=== PATIENT | male | born 1960 | race Caucasian/White ===

== ENCOUNTER 2017-12-01 09:39 | Emergency (ER) | payer BC ==
--- NOTE | 2017-12-01 09:49 | PDOC ---
History of Present Illness - General Chief Complaint: Injury Stated Complaint: INJURY FINGER Time Seen by Provider: 12/01/17 09:42 History Source: Patient (Patient walked in c/o injury to the left 5th finger injury) Exam Limitations: No Limitations - History of Present Illness Timing/Duration: 24 hours Severity: mild, moderate Modifying Factors: improves with: cold therapy, rest Associated Symptoms: reports: denies symptoms Past History - Travel Traveled outside of the country in the last 30 days: No Close contact w/someone who was outside of country & ill: No - Past Medical History Allergies/Adverse Reactions: Allergies Allergy/AdvReac Type Severity Reaction Status Date / Time No Known Allergies Allergy Verified 12/01/17 09:48 Home Medications: Ambulatory Orders Unobtainable 12/01/17 Review of Systems - Review of Systems Able to Perform ROS?: Yes Is the patient limited [place] proficient: Yes Constitutional: No: Symptoms Reported, See HPI, Chills, Diaphoresis, Fever, Loss of Appetite, Malaise, Night Sweats, Weakness, Weight Stable, Unintentional Wgt. Loss, Unexplained wgt Loss, Other HEENTM: No: Symptoms Reported, See HPI, Eye Pain, Blurred Vision, Tearing, Recent change in vision, Double Vision, Cataracts, Ear Pain, Ocular Prothesis, Ear Discharge, Nose Pain, Nose Congestion, Tinnitus, Nose Bleeding, Hearing Loss , Throat Pain, Throat Swelling, Mouth Pain, Dental Problems, Difficulty Swallowing, Mouth Swelling, Other Respiratory: No: Symptoms reported, See HPI, Cough, Orthopnea, Shortness of Breath, SOB with Exertion, SOB at Rest, Stridor, Wheezing, Productive cough, Hemoptysis, Other Musculoskeletal: Yes: Symptoms Reported, See HPI All Other Systems: Reviewed and Negative *Physical Exam - Physical Exam General Appearance: Yes: Nourished, Appropriately Dressed, Moderate Distress HEENT: positive: ESTEFANI Neck: positive: Supple Extremity: positive: Normal Capillary Refill, Swelling, Other (tenderness and slight angulation of the left 5th finger) Neurologic: positive: Fully Oriented, Alert, Normal Mood/Affect Procedures - Splinting Splint Location: Left: Finger Pre-Proc Neuro Vasc Exam: normal Pre-Made Type: metal Splint Type: Yes: Finger Post-Proc Neuro Vasc Exam: normal Joey Bandage: yes, 2" Complications: No *DC/Admit/Observation/Transfer Diagnosis at time of Disposition: Finger fracture, left Qualifiers: Encounter type: initial encounter Finger: little finger Phalanx: middle Fracture alignment: nondisplaced - Discharge Dispostion Disposition: HOME Condition at time of disposition: Improved Decision to Admit order: No - Referrals Referrals: Mitchell Torres MD [Staff Physician] - - Patient Instructions Printed Discharge Instructions: DI for Finger Fracture - Post Discharge Activity
[2017-12-01 09:58] VITALS: BP 120/74; PULSE 72; TEMP 98.8; BMI 31.4
== END 2017-12-01 12:10 | disposition home or self-care (01) ==
LOC: FER 09:39
PROC: 2W3KX1Z Immobilization of Left Finger using Splint (ICD-10-PCS; principal; 2017-12-01)
DX: S62.627A Displaced fracture of middle phalanx of left little finger, initial encounter for closed fracture (principal); X58.XXXA Exposure to other specified factors, initial encounter; Y93.89 Activity, other specified; Y92.9 Unspecified place or not applicable
CPT/HCPCS: 73140-TC-LT-FY; 99282-25